=== PATIENT | female | born 1985 | race Caucasian/White ===

== ENCOUNTER → 2016-07-12 | Outpatient (CLI) | payer BC ==
[~2016-07-12] MED LIST: FERR1TAB13 PO; MESA1.2T PO; PRENTAB26 PO
[2016-07-18 22:40] LABS: S.CEREVISIAE AB IGA 5.3 U (<=20.0); S.CEREVISIAE AB IGG 5.7 U (<=20.0)
== END | disposition home or self-care (01) ==
LOC: C.LAB1850 12:45
PROVIDERS: ATTEND Internal Medicine Gastroenterology
DX: K52.9 Noninfective gastroenteritis and colitis, unspecified (principal)

== ENCOUNTER 2016-09-04 09:32 | Emergency (ER) | payer BC ==
[~2016-09-04] VITALS: Ht 165.1 cm; Wt 63.3 kg
[~2016-09-04 09:32] MED LIST changes: -MESA1.2T PO
[2016-09-04 09:40] VITALS: TEMP 36.5; Ht 165.1 cm; Wt 63.3 kg
[2016-09-04] MEDS ORDERED: MESA1.2T PO (09:55)
[2016-09-04] MEDS ORDERED: GENTAMICIN SULFATE 0.3% OP OINT 3.5 GM TUBE OP ONE (10:00)
--- NOTE | 2016-09-04 10:07 | EMERGENCY ROOM VISIT NOTE ---
ED Visit Note First contact with patient: 09:47 CHIEF COMPLAINT: Left eye redness, drainage and itching times one day HISTORY OF PRESENT ILLNESS: Patient is a 30-year-old white female who presents emergency department for evaluation of left eye drainage. She reports her sister and niece had pinkeye and she was around them yesterday. She notes left eye redness, yellow drainage, tearing and itching. She does not wear glasses or contact lenses. She denies any pain. No changes in vision. No cold or upper respiratory symptoms. REVIEW OF SYSTEMS: Review of systems as per HPI. All other systems reviewed were negative. At least 6 systems reviewed. PMH: Electronic medical records are reviewed and summarized as above/below. See Problem List. SOCIAL HISTORY: Patient lives at home with her and daughter. 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 She does not smoke.. PHYSICAL EXAM: Vital Signs: Reviewed Nurse's notes. VISUAL ACUITY: 20/40 in the right eye, 20/30 in the left eye without correction. CONSTITUTIONAL: Patient is a pleasant, well-appearing 30-year-old white female who is awake and alert and in no acute distress. EARS: Tympanic membranes intact, not inflamed, have normal contour. External canals clear. SKIN: Warm, dry. No cyanosis. No petechia. EYE(S): Both pupils equal and reactive, EOMs full. There is some discharge in the left eye and moderate injection. EMERGENCY DEPARTMENT COURSE: Patient requested gentamicin ointment which was issued to her. She will self administer. Findings do appear consistent with a conjunctivitis. I do not suspect corneal foreign body or abrasion. Problem List Medical Problems: (1) 38 weeks gestation of Status: Resolved (2) Amniotic fluid leaking Status: Resolved (3) Inflammatory bowel disease Status: Chronic Current/Historical Medications Scheduled Mesalamine (Lialda), 2 TAB PO DAILY Multivit/Min/Iron/Fol Ac/Pren ( Vitamin), 1 TAB PO DAILY Allergies Coded Allergies: Pineapple (Verified Allergy, Intermediate, HIVES, 09/04/16) Sulfa Antibiotics (Verified Allergy, Mild, RASH, 09/04/16) Vital Signs Date Time Temp Pulse Resp B/P Pulse Ox O2 Delivery O2 Flow Rate FiO2 09/04/16 10:14 68 18 109/71 99 09/04/16 09:40 36.5 73 20 108/74 98 Room Air Medications Administered Medications (Trade) Dose Ordered Sig/Zenobia Route Start Time Stop Time Status Last Admin Dose Admin Gentamicin Sulfate (Gentamicin 0.3% Oph Oint) 1 appln NOW ONCE OP 09/04/16 10:00 09/04/16 10:01 DC 09/04/16 10:01 1 APPLN Departure Information Impression Primary Impression: Conjunctivitis, left eye Referrals RV. Coleman MD (PCP) Patient Instructions My [facility] Additional Instructions Gentamicin ointment: Apply half inch of ointment to the left eye 3 times daily 7 days. Follow-up with your primary care provider or with ophthalmology/optometry if your symptoms are not improving. Return to the emergency department if needed.
[2016-09-04 10:14] VITALS: BP 109/71; PULSE 68; O2SAT 99
== END 2016-09-04 10:15 | disposition home or self-care (01) ==
LOC: C.EDB 09:34 → C.EDD 10:15
DX: H10.9 Unspecified conjunctivitis (principal); Z79.899 Other long term (current) drug therapy; Z88.2 Allergy status to sulfonamides; Z91.018 Allergy to other foods

== ENCOUNTER → 2016-09-30 | Outpatient (CLI) | payer BC ==
[~2016-09-30] MED LIST changes: -FERR1TAB13 PO; +MESA1.2T PO
[2016-09-30 11:49] LABS: HEMATOCRIT 42.3 % (37-47); MEAN CORPUSCULAR HEMOGLOBIN 30.2 pg (25-34); MEAN CORPUSCULAR HGB CONC 32.9 g/dl (32-36); PLATELET COUNT 346 K/uL (130-400); WHITE BLOOD COUNT 8.83 K/uL (4.8-10.8)
[2016-09-30 12:20] LABS: ALB/GLOB RATIO 1.1 (0.9-2); ALKALINE PHOSPHATASE 108 U/L (45-117); ALT/SGPT 35 U/L (12-78); AST/SGOT 14 U/L (15-37); BLOOD UREA NITROGEN 26 mg/dl (7-18); CALCIUM 9.3 mg/dl (8.5-10.1); CARBON DIOXIDE 29 mmol/L (21-32); CHLORIDE 107 mmol/L (98-107); GLUCOSE 86 mg/dl (70-99); POTASSIUM 3.9 mmol/L (3.5-5.1); SODIUM 141 mmol/L (136-145)
== END | disposition home or self-care (01) ==
LOC: C.LAB 16:45
PROVIDERS: ATTEND Internal Medicine Gastroenterology
DX: K62.3 Rectal prolapse (principal)

== ENCOUNTER → 2016-10-16 | Outpatient (CLI) | payer BC ==
[2016-10-16 10:15] LABS: CHOLESTEROL/HDL RATIO 1.9
== END | disposition home or self-care (01) ==
LOC: C.LAB1850 08:46
PROVIDERS: ATTEND Internal Medicine
DX: Z13.220 Encounter for screening for lipoid disorders (principal)

== ENCOUNTER → 2017-07-30 | Outpatient (CLI) | payer BC | END | disposition home or self-care (01) | LOC: C.LAB1850 12:10 | PROVIDERS: ATTEND Internal Medicine Gastroenterology | DX: K52.3 Indeterminate colitis (principal) ==

== ENCOUNTER → 2017-08-18 | Outpatient (CLI) | payer BC | END | disposition home or self-care (01) | LOC: C.PAPS 11:04 | PROVIDERS: ATTEND Obstetrics & Gynecology | DX: Z12.4 Encounter for screening for malignant neoplasm of cervix (principal) ==

== ENCOUNTER → 2017-09-19 | Outpatient (CLI) | payer BC | END | disposition home or self-care (01) | LOC: C.LABSPEC 16:28 | PROVIDERS: ATTEND Obstetrics & Gynecology | DX: Z34.81 Encounter for supervision of other normal pregnancy, first trimester (principal) ==

== ENCOUNTER → 2017-09-22 | Outpatient (CLI) | payer BC ==
[2017-09-22 10:17] LABS: BASO % 0.3 %; BASO ABS # 0.02 K/uL (0-0.2); EOS % 1.2 %; EOS ABS # 0.09 K/uL (0-0.5); IG# 0.02 K/uL (0.00-0.02); LYMPH ABS # 1.76 K/uL (1.2-3.4); MEAN CELL VOLUME 90.3 fL (80-100); MEAN CORPUSCULAR HEMOGLOBIN 30.9 pg (25-34); MEAN CORPUSCULAR HGB CONC 34.2 g/dl (32-36); MEAN PLATELET VOLUME 9.2 fL (7.4-10.4); MONO % 7.4 %; MONO ABS # 0.54 K/uL (0.11-0.59); NEUT % 66.8 %; NEUT ABS # 4.91 K/uL (1.4-6.5); PLATELET COUNT 316 K/uL (130-400); RED CELL DISTRIBUTION WIDTH CV 13.4 % (11.5-14.5); RED CELL DISTRIBUTION WIDTH SD 44.5 fL (36.4-46.3); WHITE BLOOD COUNT 7.34 K/uL (4.8-10.8)
== END | disposition home or self-care (01) ==
LOC: C.LAB1850 08:51
PROVIDERS: ATTEND Obstetrics & Gynecology
DX: Z34.81 Encounter for supervision of other normal pregnancy, first trimester (principal)